=== PATIENT | female | born 1975 | race African-American/Black ===

== ENCOUNTER 2017-07-25 05:20 | Inpatient (IN) | payer OTHER ==
[~2017-07-25] VITALS: Ht 167.6 cm; Wt 154.2 kg
[2017-07-25] VITALS (12 sets, daily range): BP systolic 123–160; BP diastolic 72–92
--- NOTE | ~2017-07-25 | S ---
[facility] [place] [address] SURGICAL PATH RPT PROCEDURE Name: JACQUES PERALES Room #: 440-P DIS IN M.R.#: [id number] Admission: 07/25/17 Date of : 75 Discharge: 07/26/17 Report #: [id number] Path Case #: [id number] PATHOLOGY REPORT COLLECTION DATE: 07/25/2017 RECEIVED DATE: 07/27/2017 SUBMITTING PHYS: Dr. Ovi Rizvi OTHER PHYS: Dr. Jose Medina SPECIMEN(S) RECEIVED: A.Appendix * * * * * * * * * * * * FINAL DIAGNOSIS: "Appendix", appendectomy: - Acute suppurative appendicitis. (CLW:ying; 07/28/2017) PATHOLOGIST: Michelle Roche M.D. REPORT ELECTRONICALLY SIGNED BY: Michelle Roche M.D. DATE/TIME: 07/28/2017 16:44 * * * * * * * * * * * * GROSS PATHOLOGY: Received in formalin labeled "Jacques Perales, appendix" and consists of a vermiform appendix measuring 9.8 cm in length and diameter ranging from 0.5 cm to 1.0 cm. There is contiguous mesoappendix present measuring 4.5 x 2.2 cm in greatest dimension. The serosa is glistening, pink, hemorrhagic, and focally peng. The margin is inked. There is thick brown material lodged within the proximal lumen. The remaining lumen is pinpoint. The wall is intact. The mucosa is nunez to focally hemorrhagic. There are no masses or lesions identified. Alum Operator sections are submitted A1-A3.(DARRYL; 07/27/2017) CLINICAL HISTORY: Acute appendicitis INITIAL CPT CODE(S): A; 75572 Professional services performed by [facility] at [facility] [place] [place] [address] [facility] [place] [address] Technical services performed by [facility] at [address] [place] [address] [address] [place] [address] SURGICAL PATH RPT PROCEDURE Name: DIAZEDELLAY PATEL Room #: 440[facility] IN ..#: [id number] Admission: 07/25/17 Date of : 75 Discharge: 07/26/17 Report #: [id number] Path Case #: [id number] [place] [address]. [facility] [address] [place] [address] PHONE: [phone] DIRECTOR: Lauro Diallo M.D. * * * END OF REPORT * * *
--- NOTE | ~2017-07-25 | HC ---
[facility] [place] [address] CONSULTATION Name: JUSTEN PERALES Room #: 440-P ADM IN M.R.#: [id number] Admission: 07/25/17 Attend Phys: Jose Medina MD Discharge: Date of : 75 Report #: [id number] THIS REPORT FOR: //name// CC: Jose Stone DATE OF SERVICE: 07/25/2017 TYPE OF REPORT: General surgery consultation. ATTENDING PHYSICIAN: Jose Medina M.D. CONSULTING PHYSICIAN: Ovi Rizvi M.D. REASON FOR CONSULTATION: Right lower quadrant abdominal pain. HISTORY OF PRESENT ILLNESS: This is a 42-year-old female patient who developed acute onset right lower quadrant abdominal pain (now diffuse) starting around 1:00 yesterday afternoon. She denies nausea, vomiting, fever or chills. She states that she has not passed a bowel movement since . She was seen in the [place] where she underwent a CT of the abdomen and pelvis showing changes consistent with acute appendicitis. I have been asked to see the patient for further evaluation and treatment. PAST MEDICAL HISTORY: Significant for diabetes mellitus and hypertension. PAST SURGICAL HISTORY: Includes right knee surgery, open partial hysterectomy and tonsillectomy/adenoidectomy. HOME MEDICATIONS: Include metformin, glipizide and losartan. ALLERGIES: PENICILLINS, cause facial and lip swelling. FAMILY HISTORY: Significant for hypertension and diabetes mellitus in her mother. Hypertension runs on her father's side of the family. SOCIAL HISTORY: The patient denies use of tobacco, alcohol or illicit drugs. 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 REVIEW OF SYSTEMS: As per history of present illness and in addition: GENERAL: The patient denies unintentional weight loss. Denies fever or chills. HEENT: Denies changes in taste, vision, hearing or smell. RESPIRATORY: Denies shortness of breath, COPD or asthma. She does have difficulty with snoring at night and awakens frequently but has not been diagnosed with sleep apnea. CARDIOVASCULAR: Denies chest pain or palpitations. [facility] [address] [place] [address] CONSULTATION Name: JUSTEN PERALES Room #: 440-P [facility] IN ..#: [id number] Admission: 07/25/17 Attend Phys: Jose Medina MD Discharge: Date of : 75 Report #: [id number] GASTROINTESTINAL: As per history of present illness. Her pain is now more centrally located. She denies bright red blood per rectum. GENITOURINARY: Denies dysuria, urgency, increased urinary frequency or hematuria. MUSCULOSKELETAL: Denies myalgia and reports some arthralgia. NEUROLOGICAL: Denies headaches, numbness or tingling. PSYCHIATRIC: Denies depression, anxiety or suicidal ideations. SKIN AND INTEGUMENTARY: Denies new skin lesions, rashes or moles. ENDOCRINE: Denies polydipsia, polyuria, heat or cold intolerance. All other review of systems is negative. PHYSICAL EXAMINATION: VITAL SIGNS: Temperature 97.3, blood pressure 147/92, pulse 80, respirations 20, height 5 feet 6 inches and weight 370 pounds and BMI 55. GENERAL: This is a super morbidly obese 42-year-old -Citizen Of [place] female patient, in no acute distress, although she is slightly somnolent (as per usual according to her family). HEENT: Atraumatic and normocephalic with moist mucosal membranes. Oropharynx is clear. She has no scleral icterus. NECK: Supple. No appreciable lymphadenopathy. Trachea is midline. CHEST: Clear bilaterally. CARDIOVASCULAR: Regular rate and rhythm. ABDOMEN: Obese, soft and tender to palpation, greatest in the right lower quadrant, although pain is present diffusely. She has no rebound or guarding. No palpable masses. No appreciable hernias. Her incisional scar appears to be well healed. GENITOURINARY: Normal external female genitalia. EXTREMITIES: No clubbing or cyanosis. NEUROLOGICAL: Cranial nerves 2 through 12 grossly intact and slightly somnolent. PSYCHIATRIC: Normal mood and affect. SKIN AND INTEGUMENTARY: No acute inflammatory changes, rashes or lesions are present. LABORATORY DATA: CBC shows a white blood cell count 9.4, hemoglobin 12.0, hematocrit 35.6 and platelets 301. Her electrolytes show a sodium 135, potassium 4.0, chloride 99, CO2 28, BUN 11, creatinine 0.9 and glucose 156. Liver function tests were within normal limits. Urinalysis showed trace glucose but was otherwise negative. UCG was negative as well. RADIOLOGICAL STUDIES: Renal protocol CT showed thickening of the transverse dimension of the appendix measuring 11.8 mm with associated fat stranding compatible with acute appendicitis. Small bilateral ovarian cysts were present. The uterus was surgically absent. IMPRESSION AND PLAN: This is a super morbidly obese 42-year-old female patient [facility] [address] [facility] [place] [address] CONSULTATION Name: JUSTEN PERALES Room #: 440-P ADM IN M.Parvin.#: [id number] Admission: 07/25/17 Attend Phys: Jose Medina MD Discharge: Date of : 75 Report #: [id number] with a history of known diabetes mellitus, hypertension and probable sleep apnea who has abdominal pain and CT findings consistent with acute appendicitis. We discussed the pathophysiology and natural history of acute appendicitis as well as treatment alternatives and surgical options. The patient would benefit from laparoscopic appendectomy. We discussed the risks, benefits, and expectations of the operation in detail. The patient expressed understanding and wishes to proceed. She will be taken to the operating room at the next earliest availability. I sincerely appreciate the opportunity to participate in the care of this patient and we will leave further recommendations and orders in the electronic medical record post surgically. <ELECTRONICALLY SIGNED> By: Ovi Rizvi MD, FACS 07/25/172120 [id number] 44 Ovi Rizvi MD, FACS /nt
--- NOTE | ~2017-07-25 | O ---
[facility] [place] [address] OPERATIVE REPORT Name: EDEL PERALESROSAMARIA HERNANDEZZhane Room #: 440-P ADM IN M.R.#: [id number] Admission: 07/25/17 Attend Phys: Jose Medina MD Discharge: Date of : 75 Report #: [id number] THIS REPORT FOR: //name// CC: Jose Rizvi DATE OF SERVICE: 07/25/2017 PREOPERATIVE DIAGNOSES: 1. Acute appendicitis. 2. Super morbid obesity (BMI 55). 3. Probable obstructive sleep apnea. POSTOPERATIVE DIAGNOSES: 1. Acute appendicitis. 2. Incarcerated incisional ventral hernia. 3. Intraabdominal adhesions. 4. Super morbid obesity (BMI 55). 5. Probable obstructive sleep apnea. PROCEDURE: 1. Laparoscopic appendectomy. 2. Laparoscopic primary suture repair of incarcerated incisional ventral hernia. 3. Laparoscopic lysis of adhesions. ANESTHESIA: General endotracheal anesthesia and local anesthetic. ESTIMATED BLOOD LOSS: 5 mL. SPECIMEN: Appendix. COMPLICATIONS: None appreciated. INDICATIONS FOR PROCEDURE: This is a 42-year-old female patient with a BMI of 55, who has a history of hypertension and type 2 diabetes mellitus, who developed right lower quadrant abdominal pain that has become diffuse. She underwent CT of the abdomen and pelvis through the Emergency Room showing acute appendicitis without abscess or perforation. Her exam was consistent with this. The patient presents now for laparoscopic appendectomy. OPERATIVE FINDINGS: Upon entrance into the abdominal cavity, intraabdominal adhesions were present along the lower midline. After taking these down, I was able to place my other ports. The appendix was inflamed, mostly involving the distal 2/3 with relative sparing of the base of the appendix. There is no [facility] [address] [place] [address] OPERATIVE REPORT Name: JUSTEN PERALES AMANDA Room #: 440-P ADM IN ..#: [id number] Admission: 07/25/17 Attend Phys: Jose Medina MD Discharge: Date of : 75 Report #: [id number] evidence for abscess or perforation. While removing the appendix, an incisional ventral hernia was seen just inferior to the umbilicus, likely from her previous partial hysterectomy. Both omentum and abdominal wall fat were incarcerated into the defect with no bowel involvement. After removing the appendix, the incarcerated content was reduced from the hernia, and this was able to be repaired with a separate vykmbp-ta-[id number] 0 PDS suture. No other significant intra-abdominal pathology was seen. At the conclusion of the operation, sponge, needle and instrument counts were correct. DESCRIPTION OF PROCEDURE IN DETAIL: After the risks, benefits and expectations of the operation were discussed in detail with the patient, informed consent was obtained. The patient was identified in the preoperative holding area. She was given IV antibiotics as documented in the chart (scheduled IV antibiotics). The patient was then taken to the operating room, and she was placed in the supine position. SCDs were placed on the patient's bilateral lower extremities, and pneumatic compression was initiated. The patient was then given IV sedation, and she was intubated without incident, although she had a somewhat difficult airway. Her abdomen was then prepped and draped in the standard sterile fashion. A time-out was performed to identify the correct patient and procedure. Local anesthetic was infiltrated into the skin and subcutaneous tissue infraumbilically where a curvilinear incision was made with #15 blade scalpel. Dissection was carried down to the fascia. A small transverse fascial incision was made. A 12 mm Visiport was placed intraperitoneally with a 0-degree angled laparoscope. Pneumoperitoneum was then achieved with insufflation of carbon dioxide to 15 mmHg. A 30-degree angled laparoscope was inserted. Adhesions were present along the lower midline, and the left abdomen was not able to be seen initially. The adhesions were cleared with blunt dissection using camera in the lower midline. Local anesthetic was then infiltrated into the skin and subcutaneous tissue where a small transverse incision was made with a #15 blade scalpel. A 5 mm Visiport was placed intraperitoneally. A 30-degree angled laparoscope was inserted. The adhesions were swept away with blunt dissection until a window was created to see the left abdomen. Local anesthetic was infiltrated into the skin, subcutaneous tissue and an incision was made. The 5-mm port was then placed intraperitoneally under direct visualization. Further lysis of adhesions was undertaken to be able to visualize the appendix. Most of the adhesions were located in the midline. The adhesions involved omentum and with no bowel involvement. The patient was then placed in the Trendelenburg position, rotated to her left. The appendix was identified. The base of the appendix was seen, and a window was made in the mesoappendix adjacent to the base of the appendix. A blue load endoscopic AUGIE stapler was then used to staple and divide the appendix at its base. The mesoappendix was divided with the ultrasonic dissector with good hemostasis. The appendix and mesoappendix were then placed in the Endopouch and removed through the infraumbilical port site. While doing so, a fascial defect was identified [address] [address] OPERATIVE REPORT Name: JUSTEN PERALES Room #: 440-P [facility] IN M.R.#: [id number] Admission: 07/25/17 Attend Phys: Jose Medina MD Discharge: Date of : 75 Report #: [id number] inferior to the port site. The incarcerated content was removed from the area. A cnhumr-on-pgeob 0 PDS suture was then placed to close the defect and tied under direct visualization, seen laparoscopically to ensure no incorporation of intra-abdominal content. A 0 PDS suture was then placed to close the 12 mm port site fascial opening with the Wilson-Madison laparoscopic fascial closure device. This suture was also tied under direct visualization to ensure no incorporation of intra-abdominal content. The small bowel had been run back with no evidence for Meckel diverticulitis. The uterus was surgically absent. No free fluid was seen within the abdominal cavity. There was no evidence for iatrogenic injury or other significant pathology seen. The abdominal cavity was desufflated and the ports were removed. Interrupted subcuticular 4-0 Monocryl sutures and Dermabond were used to close the skin incisions. The patient tolerated the procedure well. She was awakened, extubated and taken to recovery room in stable condition with no apparent intraoperative complications. <ELECTRONICALLY SIGNED> By: Ovi Rizvi MD, FACS 07/25/17 [id number] Ovi Rizvi MD, FACS /nt
--- NOTE | ~2017-07-25 | S ---
[facility] [address] [place] [address] SURGICAL PATH RPT PROCEDURE Name: JUSTEN PERALES Room #: 440-P DIS IN M.R.#: [id number] Admission: 07/25/17 Date of : 75 Discharge: 07/26/17 Report #: [id number] Path Case #: [id number] PATHOLOGY REPORT DRAFT COLLECTION DATE: 07/25/2017 RECEIVED DATE: 07/27/2017 SPECIMEN(S) RECEIVED: Narinder
[~2017-07-25 05:20] MED LIST: GLIPIZIDE; LOSARTAN POTAS100 MG PO; METFORMIN
[2017-07-25 05:57] LABS: URINE BILIRUBIN NEGATIVE (Negative); URINE BLOOD NEGATIVE (Negative); URINE CLARITY SL CLOUDY; URINE COLOR YELLOW; URINE GLUCOSE-RANDOM* TRACE (Negative); URINE KETONES NEGATIVE (Negative); URINE LEUKOCYTES-REFLEX NEGATIVE (Negative); URINE NITRITE-REFLEX NEGATIVE (Negative); URINE PROTEIN (DIPSTICK) NEGATIVE (Negative); URINE SPECIFIC GRAVITY 1.015 (1.005-1.035); URINE UROBILINOGEN 0.2 E.U./dl (0.2-1.0)
[2017-07-25 06:45] LABS: ABSOLUTE NEUTROPHILS 5.9 thou/uL (1.4-8.2); BASOPHILS 1.1 % (0.0-2.0); EOSINOPHILS 1.5 % (0.0-3.0); HEMATOCRIT 35.6 % (37.0-47.0); LYMPHOCYTES 26.9 % (24.0-44.0); MCH 28.4 pg (26.0-34.0); MCHC 33.7 g/dL (28.0-37.0); MCV 84.2 fL (80.0-100.0); PLATELET COUNT 301 thou/uL (150-400); POLYS 62.5 % (36.0-66.0); RBC 4.23 mil/uL (4.20-5.00); RDW 14.7 % (10.5-14.5); WBC 9.4 thou/uL (4.0-11.0)
[2017-07-25 06:55] LABS: ANION GAP 8 mmol/L (7-16); BUN 11 mg/dL (7-18); CALCIUM 9.9 mg/dL (8.5-10.1); CHLORIDE 99 mmol/L (98-107); CO2 28 mmol/L (21-32); CREATININE 0.9 mg/dL (0.6-1.0); GLUCOSE 156 mg/dL (74-106); SODIUM 135 mmol/L (136-145)
[2017-07-25 07:01] LABS: ALBUMIN 3.2 g/dL (3.4-5.0); DIRECT BILIRUBIN < 0.1 mg/dL (<0.1-0.3); LIPASE 150 U/L (73-393); SGOT 11 U/L (15-37); SGPT 24 U/L (30-65); TOTAL BILIRUBIN 0.3 mg/dL (<0.1-1.0); TOTAL PROTEIN 7.6 g/dL (6.4-8.2)
[2017-07-26] VITALS (7 sets, daily range): BP systolic 102–141; BP diastolic 65–73
[2017-07-26 04:08] LABS: HEMATOCRIT 34.5 % (37.0-47.0); HEMOGLOBIN 11.7 gm/dL (12.0-15.0); MCH 27.6 pg (26.0-34.0); MCHC 33.9 g/dL (28.0-37.0); MCV 81.4 fL (80.0-100.0); RBC 4.24 mil/uL (4.20-5.00); RDW 14.7 % (10.5-14.5)
[2017-07-26 04:22] LABS: CALCIUM 8.6 mg/dL (8.5-10.1); CREATININE 1.1 mg/dL (0.6-1.0); POTASSIUM 4.4 mmol/L (3.5-5.1)
[2017-07-26] MEDS ORDERED: HYDROCODONE-AP1 EAC6 PO (11:09)
[2017-07-26] MEDS ORDERED: SENEXON-S TABL1 EACH PO (11:09)
== END 2017-07-26 17:46 | disposition home or self-care (01) | DRG 342 ==
LOC: ER 05:20 → EROBS 07:30 → 4S 08:53
PROVIDERS: Emergency Medicine; Surgery
PROC: 0DTJ4ZZ Resection of Appendix, Percutaneous Endoscopic Approach (ICD-10-PCS; principal; 2017-07-25)
PROC: 0WQF4ZZ Repair Abdominal Wall, Percutaneous Endoscopic Approach (ICD-10-PCS; principal; 2017-07-25)
DX: K35.80 Unspecified acute appendicitis (principal); Z68.43 Body mass index [BMI] 50.0-59.9, adult; I10 Essential (primary) hypertension; E11.9 Type 2 diabetes mellitus without complications; E66.01 Morbid (severe) obesity due to excess calories; K43.2 Incisional hernia without obstruction or gangrene; K66.0 Peritoneal adhesions (postprocedural) (postinfection); Z90.710 Acquired absence of both cervix and uterus; Z88.0 Allergy status to penicillin; Z79.84 Long term (current) use of oral hypoglycemic drugs; Z79.899 Other long term (current) drug therapy; Z83.3 Family history of diabetes mellitus; Z82.49 Family history of ischemic heart disease and other diseases of the circulatory system
CPT/HCPCS: 10102; 50101; 50249; 50411; 50555; 50558; 50739; 50740; 50962; 51975; 52265; 53307; 54022; 54118; 56526; 56527; 62110; 62900; 70005